=== PATIENT | female | born 1995 | race Hispanic/Latino ===

== ENCOUNTER 2017-04-03 23:09 | Emergency (ER) | payer SELFPAY ==
[2017-04-03 23:13] VITALS: BP 123/94; PULSE 120; RESP 16; TEMP 97.8; O2SAT 100
[2017-04-03] MEDS ORDERED: Sodium Chloride 0.9% 1,000 ML IV STA (23:30)
[2017-04-03 23:49] LABS: HEMATOCRIT 41.1 % (34.0-47.0); MEAN CELL VOLUME 90.2 fl (81.0-99.0); MEAN CORPUSCULAR HEMOGLOBIN 29.9 pg (27.0-31.0); MEAN CORPUSCULAR HGB CONC 33.2 g/dL (33.0-37.0); RED CELL DISTRIBUTION WIDTH 13.8 % (11.5-14.5)
[2017-04-03 23:58] LABS: ALB/GLOB RATIO 1.4 (1.0-2.1); ALKALINE PHOSPHATASE 51 U/L (38-126); ALT/SGPT 34 U/L (9-52); AST/SGOT 30 U/L (14-36); BILIRUBIN,TOTAL 0.5 mg/dl (0.2-1.3); BLOOD UREA NITROGEN 12 mg/dl (7-17); CALCIUM 9.9 mg/dL (8.4-10.2); CARBON DIOXIDE 22 mmol/L (22-30); CHLORIDE 106 mmol/L (98-107); GFR AFRICAN-AMERICAN > 60; GLUCOSE,RANDOM 88 mg/dL (65-105); POTASSIUM 4.1 MMOL/L (3.6-5.0); SODIUM 143 mmol/l (132-148); TOTAL PROTEIN 8.4 G/DL (6.3-8.2)
--- NOTE | 2017-04-04 01:21 | US ---
EXAM: US Pelvis Complete, Transabdominal CLINICAL HISTORY: 21 years old, female; Pain; Pelvic pain; Additional info: Left sided pelvic pain, history of cysts TECHNIQUE: Real-time transabdominal pelvic ultrasound (complete) with image documentation. COMPARISON: No relevant prior studies available. FINDINGS: Uterus/cervix: Uterus measures 6.8 x 2.7 x 4.0 cm in size. No myometrial mass. Endometrium: 0.6 cm in thickness. Right ovary: Suboptimally visualized. 2.7 x 2.5 x 2.9 cm in size. No mass. Normal flow. Left ovary: 2.0 x 1.7 x 1.6 cm in size. No mass. Small follicles. Normal flow. Free fluid: No significant free fluid. Bladder: Unremarkable as visualized. IMPRESSION: 1.No acute findings. 2.Non-acute findings are described above. EXAM: US Pelvis, Transvaginal CLINICAL HISTORY: 21 years old, female; Pain; Pelvic pain; Additional info: Left sided pelvic pain, history of cysts TECHNIQUE: Real-time transvaginal pelvic ultrasound (complete) with image documentation. Transvaginal imaging was used for better evaluation of the endometrium and adnexa. COMPARISON: No relevant prior studies available. FINDINGS: Uterus/cervix: Uterus measures 6.8 x 2.7 x 4.0 cm in size. No myometrial mass. Endometrium: 0.6 cm in thickness. Right ovary: Suboptimally visualized. 2.7 x 2.5 x 2.9 cm in size. No mass. Normal flow. Left ovary: 2.0 x 1.7 x 1.6 cm in size. No mass. Small follicles. Normal flow. Free fluid: No significant free fluid. Bladder: Empty bladder which cannot be evaluated with this probe.
--- NOTE | 2017-04-04 01:52 | ED PDOC ---
HPI: Abdomen Time Seen by Provider: 04/03/17 23:17 Chief Complaint (Nursing): Abdominal Pain Chief Complaint (Provider): Left sided pelvic pain History Per: Patient History/Exam Limitations: no limitations Onset/Duration Of Symptoms: Hrs (2) Outside of [place] travel?: No Current Symptoms Are (Timing): Still Present Severity: Severe Pain Scale Rating Of: 10 Location Of Pain/Discomfort: LLQ Quality Of Discomfort: Sharp Associated Symptoms: Nausea, Vomiting. denies: Fever, Chills, Loss Of Appetite Additional Complaint(s): Pt reports left sided pelvic pain. States it has been bothering her all day but is worse the last 2 hours. Pt states she has history of left sided ovarian cysts and left sided ovarian CA. Pt states she has been feeling better over the last 2 years since having laproscopic surgery for removal of "27 cancerous cells from left ovary". Past Medical History Reviewed: Historical Data, Nursing Documentation, Vital Signs Vital Signs: Last Vital Signs Temp 97.8 F 04/03/17 23:10 Pulse 120 H 04/03/17 23:10 Resp 16 04/03/17 23:10 BP 123/94 H 04/03/17 23:10 Pulse Ox 100 04/04/17 01:52 - Medical History PMH: No Chronic Diseases - Surgical History Surgical History: No Surg Hx - Family History Family History: States: Unknown Family Hx - Living Arrangements Living Arrangements: With Family - Social History Current smoker - smoking cessation education provided: No Alcohol: Occasional Drugs: Denies - Home Medications Home Medications: Ambulatory Orders Medication Instructions Recorded Ciprofloxacin [Cipro] 500 mg PO BID #10 tab 04/04/17 Ibuprofen [Motrin Tab] 800 mg PO Q6H PRN #20 tab 04/04/17 - Allergies Allergies/Adverse Reactions: Allergies Allergy/AdvReac Type Severity Reaction Status Date / Time amphetamine [From Adderall] Allergy RASH Verified 04/03/17 23:10 dextroamphetamine Allergy RASH Verified 04/03/17 23:10 [From Adderall] Review of Systems ROS Statement: Except As Marked, All Systems Reviewed And Found Negative Genitourinary Female: Positive for: Pelvic Pain. Negative for: Dysuria Physical Exam - Reviewed Nursing Documentation Reviewed: Yes Vital Signs Reviewed: Yes - Physical Exam Appears: Positive for: Well, Non-toxic, No Acute Distress Head Exam: Positive for: ATRAUMATIC, NORMAL INSPECTION, NORMOCEPHALIC Skin: Positive for: Normal Color, Warm, DRY Eye Exam: Positive for: Normal appearance ENT: Positive for: Normal ENT Inspection Neck: Positive for: Normal, Painless ROM Cardiovascular/Chest: Positive for: Regular Rate, Rhythm Respiratory: Positive for: Normal Breath Sounds. Negative for: Accessory Muscle Use, Respiratory Distress Gastrointestinal/Abdominal: Positive for: Normal Exam, Bowel Sounds, Soft, Tenderness (Lower left ) Back: Positive for: Normal Inspection Extremity: Positive for: Normal ROM Neurologic/Psych: Positive for: Alert, Oriented - Laboratory Results Result Diagrams: 04/03/17 23:44 04/03/17 23:44 - ECG O2 Sat by Pulse Oximetry: 100 Medical Decision Making Medical Decision Making: Pt given morphine 4mg and toradol 15mg. States she is still in pain. Case discussed with Dr. Finnegan. Additional 4mg morphine given. Discussed normal US. (+ ) leuks in urine which was clean catch. Pt also has multiple Rx for tramadol and percocet (5mg and 7.5mg) over the last year from multiple providers. Pt also with >10 Rx for benzos. Disposition - Clinical Impression Clinical Impression: UTI (urinary tract infection) - Patient ED Disposition Is Patient to be Admitted: No Counseled Patient/Family Regarding: Diagnosis, Need For Followup, Rx Given - Disposition Referrals: [facility] [Outside] Disposition: Routine/Home Disposition Time: 01:51 Condition: GOOD Prescriptions: Ciprofloxacin [Cipro] 500 mg PO BID #10 tab Ibuprofen [Motrin Tab] 800 mg PO Q6H PRN #20 tab PRN Reason: Pain Instructions: Urinary Tract Infection in Women (ED)
== END 2017-04-04 04:30 | disposition home or self-care (01) ==
LOC: H.ER 23:09
DX: N39.0 Urinary tract infection, site not specified (principal); N83.202 Unspecified ovarian cyst, left side; Z85.43 Personal history of malignant neoplasm of ovary; R11.2 Nausea with vomiting, unspecified
CPT/HCPCS: 76830; 80053; 81025; 85027; 87086; 87181; 96374; 99283; J1885; J2270; J2405; J7040